=== PATIENT | male | born 1945 | race Caucasian/White ===

== ENCOUNTER 2021-01-10 14:45 | Emergency (ER) | payer OTHER ==
[2021-01-10 15:16] VITALS: BMI 29.9
[2021-01-10] MEDS ORDERED: ACETAMINOPHEN 500 MG TABLET (FP) PO ONE (16:07)
[2021-01-10 16:27] VITALS: BP 129/69; PULSE 98; TEMP 101.6
== END 2021-01-10 17:20 | disposition left against medical advice (07) ==
LOC: JER 14:45
DX: J84.9 Interstitial pulmonary disease, unspecified (principal); Z11.52 Encounter for screening for COVID-19
CPT/HCPCS: 71045-TC-FY; 87086; 99283-25; C9803; U0003; U0005